=== PATIENT | female | born 1985 | race Caucasian/White ===

== ENCOUNTER 2024-05-05 10:47 | Emergency (ER) | payer OTHER, SELFPAY ==
[2024-05-05] VITALS (31 sets, daily range): BP systolic 110–131; BP diastolic 62–76; PULSE 63–81; RESP 16–44; TEMP 36.3; O2SAT 94–100; BMI 25.8
--- NOTE | 2024-05-05 10:55 | DI.RAD.S_ITS ---
PROCEDURE: XR SHOULDER RT MIN 2V INDICATIONS: R shoulder injury possible dislocation TECHNIQUE: 2 views of the shoulder were acquired. COMPARISON: None. FINDINGS: Bones: There is anterior inferior dislocation of the right humeral head. No discrete fracture is identified. Alignment is otherwise anatomic. Soft tissues: No suspicious soft tissue calcifications. IMPRESSION: Anterior inferior glenohumeral dislocation. Dictated by: Melinda Turner M.D. on 05/05/2024 at 10:21 Approved by: Melinda Turner M.D. on 05/05/2024 at 10:22
--- NOTE | 2024-05-05 10:57 | ED.UPPEXIN ---
HPI - Extremity Injury (Upper) General Chief Complaint: Extremity Injury, Upper Stated Complaint: May have dislocated her right shoulder Time Seen by Provider: 05/05/24 10:53 History of Present Illness HPI narrative: 38-year-old left handed female who works at [employer] at [employer] was involved with [employer] [place] this morning, tripped on some ropes while standing, felt right shoulder pain, concerned she might have a dislocation. Denies face head neck injuries. Denies pain to upper mid lower back. Denies pain or injury to chest abdomen and pelvis. No left upper extremity injuries or pain. No lower extremity injuries or pain, has been ambulatory without difficulties. Right shoulder was wrapped in long sleeve jacket and provide sling. No pain or injuries to the right clavicle, mid distal arm, elbow, forearm, wrist, hand, fingers. Related Data Previous Rx's Medication Instructions Recorded tramadol 50 mg tablet 50 mg PO Q6H PRN pain #20 tabs 05/05/24 Allergies Allergy/AdvReac Type Severity Reaction Status Date / Time No Known Drug Allergies Allergy Verified 05/05/24 10:55 Review of Systems Review of Systems Narrative: see HPI Exam Narrative Exam Narrative: GENERAL: Well-developed patient, in mild distress. HEAD: Atraumatic. Normocephalic. EYES: Pupils equal round and reactive. Extraocular motions intact. No scleral icterus. No injection or drainage. ENT: Nose without bleeding, purulent drainage. Throat without erythema, tonsillar hypertrophy or exudate. Airway patent. NECK: Trachea midline. Non tender CARDIOVASCULAR: Regular rate and rhythm without murmurs, gallops, or rubs. RESPIRATORY: Clear to auscultation. Breath sounds equal bilaterally. No wheezes, rales, or rhonchi. GASTROINTESTINAL: Abdomen soft, non-tender, nondistended. EXTREMITIES: Right shoulder anterior fullness with some step-off, no tenderness at AC. No obvious injuries to distal right upper extremity. No edema or joint tenderness. BACK: Nontender without deformity or crepitance. No flank tenderness. NEURO: AOx3. Motor function grossly nonfocal, limited by right shoulder pain SKIN: No rash or erythema of visible areas Initial Vital Signs Initial Vital Signs: Vital Signs Temperature 97.4 F L 05/05/24 10:55 Pulse Rate 73 05/05/24 10:55 Respiratory Rate 16 05/05/24 10:55 Blood Pressure 125/76 05/05/24 10:55 Pulse Oximetry 100 05/05/24 10:55 Oxygen Delivery Method Room Air 05/05/24 10:55 Procedures Orthopedic Joint Reduction Joint #1: Time of procedure: 13:17 Time Out Performed: Yes Side: right Joint Reduction Location: shoulder Analgesia: procedural sedation Shoulder Technique Used (if applicable): external rotation ([place] maneuver x1 attempt on the right side) Post-reduction neuro exam: intact Post-reduction vascular: intact Post Reduction X-Ray Obtained: Yes Post Reduction X-Ray Results: reduced Splint Applied: No Patient Tolerated Procedure: Well Additional Comments: Successful right anterior shoulder dislocation, sling applied. Returned to preprocedural baseline, neurovascularly intact postprocedure Procedural Sedation Time of procedure: 13:15 Consent signed: Yes Time out performed: Yes Indication: fracture/dislocation reduction Presedation Evaluation: None ASA Class: I Mallampati Airway Classification: Class I Time of Last PO Intake: 08:00 Preparation: radiographer cardiac catheterization applied, pulse oximeter, capnometry used, supplemental O2 applied, reversal agents at bedside, suction/airway equipment at bedside and IV secured IV Propofol dose (mg): 180 ED Sedation Level: Moderate (Concious) Patient Tolerated Procedure: Well Complications: none Additional Comments: No airway interventions required. Return to preprocedure baseline mental status, tolerated sedation and procedure well Course Orders Ordered: Discontinued Medications Ibuprofen (Ibuprofen 400 Mg Tablet) 400 mg PO NOW ONE Stop: 05/05/24 13:26 Last Admin: 05/05/24 13:39 Dose: 400 mg Documented By: CODY Propofol (Propofol 200 Mg/20 Ml Vial) 200 mg IV NOW ONE Stop: 05/05/24 11:14 Last Admin: 05/05/24 13:09 Dose: 180 mg Documented By: CODY Tramadol HCl (Tramadol 50 Mg Tablet) 50 mg PO NOW ONE Stop: 05/05/24 13:25 Last Admin: 05/05/24 13:41 Dose: Not Given Documented By: CODY Vital Signs Vital signs: Vital Signs - 8 hr 05/05/24 10:55 Temperature 97.4 F L Pulse Rate 73 Respiratory Rate 16 Blood Pressure 125/76 Pulse Oximetry 100 Oxygen Delivery Method Room Air MDM - Extremity Injury (Upper) Imaging Data Extremity x-ray #1: Radiologist's Impression: [address] [place] [address] XRay Report Signed Patient: Jose Hunt MR#: [id number] : 1985 Acct:[id number] Age/Sex: 38 / F Date of Service: 05/05/24 Loc: ED Accession Number: [id number] Procedure: XR shoulder RT min 2V Ordering Provider: Randy Hung MD PROCEDURE: XR SHOULDER RT MIN 2V INDICATIONS: R shoulder injury possible dislocation TECHNIQUE: 2 views of the shoulder were acquired. COMPARISON: None. FINDINGS: Bones: There is anterior inferior dislocation of the right humeral head. No discrete fracture is identified. Alignment is otherwise anatomic. Soft tissues: No suspicious soft tissue calcifications. IMPRESSION: Anterior inferior glenohumeral dislocation. Dictated by: Melinda Turner M.D. on 05/05/2024 at 10:21 Approved by: Melinda Turner M.D. on 05/05/2024 at 10:22 [facility] Narrative Medical decision making narrative: 38-year-old left-handed female with ground level fall, right shoulder pain, anterior dislocation clinically. Radiographic confirmation, no fracture obvious. Seems low risk for sedation. Consented for IV sedation for reduction. See separate sedation and procedure notes, single attempt [place] reduction after IV propofol, with palpable and visible reduction, postreduction shoulder XRay anatomic without evidence [place] Sachs fracture. Pt placed in sling. Copies XRays onto disc. Follow-up with PCP or orthopedics in home [facility] next few days. Advised use OTC tylenol/motrin as needed for pain control. Home with friend. Rx for Tramadol to use if needed. Discharge Plan Departure Patient Disposition: Home Clinical Impression: Anterior dislocation of right shoulder Activity Restrictions/Additional Instructions: Right anterior shoulder injury, dislocation clinically confirmed on radiographs studies, no obvious fractures. IV propofol sedation for procedure reduction was tolerated well, with single attempt [place] maneuver, palpable and visible reduction, radiographically confirmed anatomic postprocedure. Neurovascularly intact postprocedure. Shoulder sling applied. I could not see any Hill-Sachs fracture post reduction. Copies of x-rays onto disc for your [facility] follow-up. Sling for support. You might require some physical therapy rehabilitation while soft tissue structures heal. Recheck with your [facility] provider in the next couple of days. Return to nearest emergency department for any change worsening symptoms or any concerns prior to that visit Prescriptions: New tramadol 50 mg tablet 50 mg PO Q6H PRN (Reason: pain) Qty: 20 0RF Stand Alone Forms: Patient Portal/API
[2024-05-05] MEDS: propofoL 200 MG/20 ML VIAL IV (13:09)
--- NOTE | 2024-05-05 13:15 | DI.RAD.S_ITS ---
PROCEDURE: XR SHOULDER RT MIN 2V INDICATIONS: POST REDUCTION FILM TECHNIQUE: 2 views of the shoulder were acquired. COMPARISON: [facility], , XR SHOULDER RT MIN 2V, 05/05/2024, 11:01. FINDINGS: There is normal glenohumeral alignment postreduction without discrete fracture. Remaining osseous and soft tissue structures are unchanged. IMPRESSION: Normal alignment postreduction. Dictated by: Melinda Turner M.D. on 05/05/2024 at 13:09 Approved by: Melinda Turner M.D. on 05/05/2024 at 13:10
[2024-05-05] MEDS: IBUPROFEN 400 MG TABLET PO (13:39)
== END 2024-05-05 13:53 | disposition home or self-care (01) ==
PROVIDERS: Emergency Provider Emergency Medicine
DX: S43.014A Anterior dislocation of right humerus, initial encounter (principal); W01.0XXA Fall on same level from slipping, tripping and stumbling without subsequent striking against object, initial encounter
CPT/HCPCS: 23650; 36415; 73030; 99152; 99153; 99284; 99285; J2704